=== PATIENT | female | born 1955 | race Caucasian/White ===

== ENCOUNTER 2023-05-17 14:01 | Outpatient (CLI) | payer MEDICARE, OTHER ==
[~2023-05-17] VITALS: Ht 165.1 cm; Wt 60.3 kg
[2023-05-17] MEDS ORDERED: albuterol 2.5 MG/3 ML nebule NEB ONE (14:39)
[2023-05-17 14:51] VITALS: PULSE 82; RESP 16; O2SAT 98
== END 2023-05-17 23:59 | disposition home or self-care (01) ==
LOC: RT 14:01
PROVIDERS: ATTEND Physician Assistant Medical
DX: R94.2 Abnormal results of pulmonary function studies (principal); R06.09 Other forms of dyspnea
CPT/HCPCS: 94060; 94760

== ENCOUNTER 2024-12-22 11:45 | Emergency (ER) | payer MEDICARE, OTHER ==
[2024-12-22] VITALS (9 sets, daily range): BP systolic 111; BP diastolic 66; PULSE 106–124; RESP 18–32; TEMP 97.8; O2SAT 93–100
[~2024-12-22] VITALS: Ht 165.1 cm; Wt 61.1 kg
--- NOTE | 2024-12-22 11:55 | ELECTROCARDIOGRAPH REPORT ---
[facility] Test Date: 2024-12-22 Test Time: 11:48:13 Pat Name: JASKARAN TROY Department: EMERGENCY ROOM [id number] Room: Gender: F Construction Supervisor: AMANDA : 1955 Requested By: BORA LY Order Number: [id number] Reading MD: Dr. Guanakito Lima Measurements Intervals [place] Rate: 111 P: 92 [place]: 107 QRS: 65 QRSD: 117 T: -36 QT: 342 QTc: 465 Interpretive Statements Sinus tachycardia Probable left atrial enlargement Incomplete right bundle branch block Borderline ST depression, lateral leads Electronically Signed On 12-23-2024 18:21:[address] Guanakito Lima Please click the below link to view image of tracing.
[2024-12-22] MEDS: ipratropium/albuterol 3ml nebule NEB STA (12:00)
[2024-12-22 12:14] LABS: MEAN PLATELET VOLUME 7.9 FL (7.4-10.4); RED CELL DISTRIBUTION WIDTH 13.5 % (11.5-14.5)
--- NOTE | 2024-12-22 12:16 | Physician Documentation ---
History of Present Illness ~ Chief Complaint: Asthma Stated Complaint: DIFFICULTY BREATHING Time Seen by MD: 12:01 Source: patient Mode of Arrival: POV Exam Limitations: no limitations HPI Chief Complaint: Shortness a breath Caveat: None Independent Historians: None History of Present Illness: Patient is a 69-year-old woman who took a taxi here because of her shortness a breath. Patient has started to feel short of breath midnight on Saturday. Shortness of breath has gotten progressively worse. Patient has had asthma in the past but has not used her asthma inhaler in a year. She tried that but without relief. Patient was 87% on room air upon arrival. Review of systems: All systems were reviewed and are negative except for what is indicated in the history of present illness. Past Medical History: Asthma Past Surgical History: Noncontributory Social History: No Tobacco use, no alcohol use, no drug use Medications: Reviewed as documented Nursing Notes Allergies: Reviewed as documented in Nursing Notes Medication Reconciliation Allergies: Coded Allergies: clindamycin (Verified Allergy, Unknown, 12/22/24) Scheduled Budesonide/Formoterol Fumarate (Symbicort 80-4.5 Mcg Inhaler), 2 PUFFS INH Q12H Prednisone* (Prednisone*), 1 TAB PO Q12H Scheduled PRN Albuterol Sulfate (Ventolin Hfa), 2 PUFFS INH Q4HPRN PRN for wheezing Review of Systems All Other Systems at this time: Reviewed and Negative ROS Patient denies any other acute symptoms other than above. All other systems are negative Physical Exam Vital Signs: RN Vital Signs have been reviewed: Yes, Temperature: 97.8, Source: Temporal, Heart Rate: 112, Respiratory Rate: 30, BP: 177/92, Pulse Oximetry: 99, Weight: 61.150 Pulse Oximetry Reflects: adequate oxygenation Physical Exam General Appearance: Moderate distress, critically ill-appearing HEENT: Normal OP, moist oral mucosa, PERRL, EOMI Neck: supple, normal ROM, trachea midline Pulmonary: Severe respiratory distress, bilateral inspiratory and expiratory wheezes that are audible even without stethoscope, BS equal Cardiac: Tachycardia, regular rhythm, no murmur, rub or gallop, GI: nondistended, soft, nontender, normal bowel sounds, no guarding, no rebound Extremities: normal ROM, no swelling, non-tender Skin: intact, dry, warm, no rashes Neuro: AAOx3, speech is clear, no focal motor weakness Psych: normal affect, good eye contact, no apparent hallucination, normal speech Progress Results/Orders Results/Orders Orders - BORA LY MD Chest,Single View (12/22/24 11:53) Cont Nebulizer Treatment (12/22/24 12:13) Albuterol 2.5mg/3ml Nebule (Proventil 2. (12/22/24 12:15) Svn Treatment (12/22/24 13:27) Svn Treatment (12/22/24 14:37) Completed Orders - BORA LY MD Chest,Single View (12/22/24 11:53) Cbc/Diff (12/22/24 11:53) BMP (12/22/24 11:53) Electrocardiogram (12/22/24 11:53) Ipratropium/Albuterol Nebule (Ipratrop/A (12/22/24 11:53) Methylprednisolone Sod Succ (Solumedrol (12/22/24 12:15) Normal Saline 1000ml (0.9% Sodium Chlori (12/22/24 12:15) Ipratropium/Albuterol Nebule (Ipratrop/A (12/22/24 13:30) Albuterol 2.5mg/3ml Nebule (Proventil 2. (12/22/24 14:40) Normal Saline 1000ml (0.9% Sodium Chlori (12/22/24 14:40) Medications Received in ER Medications (Trade) Dose Ordered Sig/Tim Route PRN Reason Start Time Stop Time Status Last Admin Dose Admin (ipratrop/ albuterol 0.5-3(2.5) MG/3ml nebule) 3 ml NOW STAT NEB 12/22/24 11:53 12/22/24 11:54 DC 12/22/24 12:00 3 ML (SoluMEDROL 125mg inj) 125 mg ONCE ONCE IV 12/22/24 12:15 12/22/24 12:16 DC 12/22/24 12:19 125 MG (0.9% sodium chloride (NS) 1000ml IV soln) 500 ml ONCE ONCE IVB 12/22/24 12:15 12/22/24 12:16 DC 12/22/24 12:19 500 ML (Proventil 2.5 MG/3ML nebule) 10 mg Q1H PRN CONTNEB SOB or wheezing 12/22/24 12:15 12/22/24 12:20 10 MG (ipratrop/ albuterol 0.5-3(2.5) MG/3ml nebule) 3 ml ONCE ONCE NEB 12/22/24 13:30 12/22/24 13:31 DC 12/22/24 13:31 3 ML (Proventil 2.5 MG/3ML nebule) 5 mg ONCE ONCE NEB 12/22/24 14:40 12/22/24 14:43 DC 12/22/24 14:53 5 MG (0.9% sodium chloride (NS) 1000ml IV soln) 500 ml ONCE ONCE IVB 12/22/24 14:40 12/22/24 14:43 DC 12/22/24 14:44 500 ML Vital Signs 12/22/24 12/22/24 12/22/24 12/22/24 11:48 12:03 12:06 12:08 Temp 97.8 Pulse 111 108 112 Resp 18 32 35 30 B/P (MAP) 177/92 Pulse Ox 97 93 99 O2 Delivery Nasal Cannula* Nasal Cannula* O2 Flow Rate 2 2 FiO2 12/22/24 12/22/24 12/22/24 12/22/24 12:22 12:26 12:56 13:30 Pulse 110 106 113 125 Resp 28 35 B/P (MAP) 155/88 (110) 151/85 (107) 142/84 (103) Pulse Ox 96 100 100 O2 Flow Rate 1.5 15.0 12/22/24 12/22/24 12/22/24 12/22/24 13:33 13:41 14:00 14:30 Pulse 122 124 118 116 Resp 24 22 B/P (MAP) 122/69 (86) 106/59 (75) Pulse Ox 97 100 99 90 O2 Delivery Room Air* Room Air* O2 Flow Rate 0 0 0 FiO2 21 12/22/24 12/22/24 12/22/24 12/22/24 14:42 14:56 15:00 15:06 Pulse 116 109 Resp 20 18 Pulse Ox 95 98 95 100 O2 Delivery Nasal Cannula* Nasal Cannula* Nasal Cannula* Room Air* Nasal Cannula* O2 Flow Rate 2 2 1 1 FiO2 28 28 24 N/A 12/22/24 15:30 Pulse 109 Resp 22 B/P (MAP) 111/66 (81) Pulse Ox 93 O2 Flow Rate 0 Laboratory Tests Test 12/22/24 12:04 White Blood Count 4.7 Red Blood Count 5.16 Hemoglobin 15.8 Hematocrit 46.9 H Mean Corpuscular Volume 90.9 Mean Corpuscular Hemoglobin 30.6 Mean Corpuscular Hemoglobin Concent 33.7 Red Cell Distribution Width 13.5 Platelet Count 210 Mean Platelet Volume 7.9 Neutrophils (%) (Auto) 69.4 Lymphocytes (%) (Auto) 17.5 L Monocytes (%) (Auto) 6.6 Eosinophils (%) (Auto) 6.2 H Basophils (%) (Auto) 0.3 Neutrophils # (Auto) 3.3 Lymphocytes # (Auto) 0.8 L Monocytes # (Auto) 0.3 Eosinophils # (Auto) 0.3 Basophils # (Auto) 0.0 CBC Comment Sodium Level 137 Potassium Level 4.4 Chloride Level 99 Carbon Dioxide Level 27.8 Anion Gap 10 Blood Urea Nitrogen 10 Creatinine 0.78 Estimated GFR/1.73 m2 73 BUN/Creatinine Ratio 12.8 Glucose Level 132 H Calcium Level 9.2 Albumin 4.4 Chemistry Comments Medical Decision Making Findings Differential diagnosis includes but is not limited to: Asthma exacerbation, COPD, CHF, pneumonia, pleural effusion EKG independent interpretation: Performed at 11:48 a.m.. Sinus tachycardia, heart rate 111, normal axis, incomplete right bundle-branch block, left atrial enlargement Chest x-ray, single view, indication: Shortness a breath Independent interpretation: Lungs are clear but there is some increased interstitial markings in the lower lungs, no evidence of pneumonia, no pleural effusion, normal mediastinum, normal cardiac silhouette. No acute cardiopulmonary process Laboratory data independent interpretation: CBC: Unremarkable BMP: Unremarkable Emergency department course/medical decision-making: Patient is critically ill and presents with the acute respiratory failure secondary to what appears to be asthma. Patient is given Solu-Medrol 125 mg IV. Normal saline 500 cc IV. Albuterol neb 10 mg continuous. Patient has diffuse inspiratory and expiratory wheezes. Patient is requiring 2 L of oxygen by nasal cannula. PATIENT RE-EVALUATED MULTIPLE TIMES. PATIENT HAS PERSISTENT WHEEZING. PATIENT STATES THAT SHE IS ON ABLE TO STAY. IT IS HIGHLY RECOMMENDED SHE BE ADMITTED TO THE HOSPITAL BUT SHE STATES SHE NEEDS TO GO HOME TO TAKE CARE OF HER WHO IS A QUADRIPLEGIC. PATIENT IS GIVEN A 2ND AND 3RD NEBULIZER TREATMENTS BOTH ALBUTEROL AND DUONEB. PATIENT GIVEN ADDITIONAL 500 CC OF NORMAL SALINE. PATIENT IS INSTRUCTED TO RETURN AND CALLED 911 IF SHE HAS ANY WORSENING OF HER SYMPTOMS. PATIENT REMAINS TACHYCARDIC SECONDARY TO THE ALBUTEROL. PATIENT'S PULSE OX IS LOW 90% WHEN SLEEPING. PATIENT'S PULSE OX AT DISCHARGE WAS 93%. PATIENT STATES THAT SHE FEELS MUCH BETTER BUT STILL REFUSES ADMISSION. PATIENT IS DISCHARGED AGAINST MEDICAL ADVICE. PRESCRIPTIONS FOR PREDNISONE, VENTOLIN INHALER AND BUDESONIDE INHALER SENT TO [facility]. Departure Time of Disposition: 15:33 Disposition: 07 LEFT AGAINST MEDICAL ADVICE Impression: Primary Impression: Acute respiratory failure with hypoxia Additional Impression: Asthma exacerbation Qualified Codes: J45.51 - Severe persistent asthma with (acute) exacerbation Additional Instructions: CALLED 911 IF YOUR BREATHING GETS WORSE. TAKE YOUR ALBUTEROL INHALER 2-4 PUFFS EVERY 4 HOURS FOR THE NEXT SEVERAL DAYS. IF YOU ARE REQUIRING ALBUTEROL MORE FREQUENTLY SHOULD RETURN TO THE EMERGENCY DEPARTMENT Prescriptions Budesonide/Formoterol Fumarate (Symbicort 80-4.5 Mcg Inhaler) 80 Mcg-4.5 Mcg/Actuation Hfa.aer.ad 2 PUFFS INH Q12H for 30 Days, #1 INHALER 0 Refills Prov: BORA LY MD 12/22/24 Prednisone* (Prednisone*) 20 Mg Tablet 1 TAB PO Q12H for 5 Days, #10 TAB Prov: BORA LY MD 12/22/24 Albuterol Sulfate (Ventolin Hfa) 90 Mcg Hfa.aer.ad 2 PUFFS INH Q4HPRN PRN for wheezing for 30 Days, #18 GM 0 Refills Prov: BORA LY MD 12/22/24 Education Educated: Patient Educated regarding: diagnosis, treatment, need for follow up Critical Care Note Total Time (mins): 45 Critical Care Note Critical conditions addressed for impending deterioration include: airway/respiratory, cardiovascular Associated risk factors involving deterioration include: hypoxia, The very real possibility of a deterioration of this patient's condition required the highest level of my preparedness for sudden, emergent intervention. I provided critical care services, which included medication orders, frequent reevaluations of the patient's condition and response to treatment, ordering and reviewing test results, and discussing the case with necessary consultants. Critical care time was exclusive of necessary procedure time. The critical care time associated with the care of the patient was 45 minutes. Signature Scribe Signature: NO SCRIBE Attestation: NO SCRIBE BORA LY MD Dec 22, 2024 12:16
[2024-12-22] MEDS: normal saline 1000ML IV soln IVB ONE ×2 (12:19→14:44)
[2024-12-22] MEDS: albuterol 2.5 MG/3 ML nebule CONTNEB PRN (12:20)
[2024-12-22 12:21] LABS: CREATININE 0.78 MG/DL (0.40-0.90); TOTAL CARBON DIOXIDE 27.8 MMOL/L (24-32); eCRCL 61 ML/MIN; eGFR 73 ML/MIN
--- NOTE | 2024-12-22 12:43 | RADIOLOGY REPORT ---
CHEST RADIOGRAPH Indication: CP Technique: Single frontal view of the chest was obtained COMPARISON: None FINDINGS: Lines and Tubes: None Lungs: Clear Pleura: No effusion. No pneumothorax. Cardiomediastinal contours: Unremarkable Bones: Unremarkable IMPRESSION: No acute disease.
[2024-12-22] MEDS: ipratropium/albuterol 3ml nebule NEB ONE (13:31)
[2024-12-22] MEDS: albuterol 2.5 MG/3 ML nebule NEB ONE (14:53)
[2024-12-22] MEDS ORDERED: PRED20TA PO (15:36)
[2024-12-22] MEDS ORDERED: ALBU18HF2 INH (15:36)
[2024-12-22] MEDS ORDERED: BUDE10.22 INH (15:36)
== END 2024-12-22 15:52 | disposition left against medical advice (07) ==
LOC: ER 11:45
DX: J96.01 Acute respiratory failure with hypoxia (principal); J45.901 Unspecified asthma with (acute) exacerbation; Z88.1 Allergy status to other antibiotic agents
CPT/HCPCS: 36415; 71045; 80048; 85025; 93005; 94644; 96374; 99291; A4615; A7015; J2919; J7030; Z7610; 94640; 94760

== ENCOUNTER 2025-01-27 09:58 | Inpatient (IN) | payer MEDICARE, OTHER ==
[2025-01-27] VITALS (7 sets, daily range): BP systolic 110–144; BP diastolic 69–85; PULSE 86–105; RESP 16–20; TEMP 97.7–98.2; O2SAT 92–98
[~2025-01-27] VITALS: Ht 165.1 cm; Wt 61.9 kg
[~2025-01-27 09:58] MED LIST: ALBU18HF2 INH; BUDE10.22 INH
--- NOTE | 2025-01-27 10:07 | Physician Documentation ---
History of Present Illness ~ Chief Complaint: Shortness of Breath Stated Complaint: SOB Time Seen by MD: 10:07 HPI 69-year-old female, history of asthma who presents with shortness of breath. Per EMS, the patient was in mild respiratory distress, with an oxygen saturation in the mid 80s when they arrived. They gave her albuterol treatment with improvement. The patient tells me she has been feeling sick over the past week. Her symptoms have gradually been worsening, and during the night they significantly worsened. She reports increased cough and wheezing. She has been feeling hot and cold like she is having a fever. She denies any chest pain, abdominal pain, nausea, vomiting, diarrhea, leg pain or swelling, or other associated symptoms. She does have a history of severe asthma including status asthmaticus and admission. The last time she was on steroids was about a month ago. Medication Reconciliation Allergies: Coded Allergies: clindamycin (Verified Allergy, Unknown, 12/22/24) Scheduled Budesonide/Formoterol Fumarate (Symbicort 80-4.5 Mcg Inhaler), 2 PUFFS INH Q12H Scheduled PRN Albuterol Sulfate (Ventolin Hfa), 2 PUFFS INH Q4HPRN PRN for wheezing Review of Systems Constitutional: Reports: chills, fever Respiratory: Reports: cough, shortness of breath Physical Exam Vital Signs: Source: Oral, Heart Rate: 111, BP: 137/92, Pulse Oximetry: 94, Weight: 61.900 Oxygen Flow Rate: 0 Physical Exam General: This is a pleasant older female who appears in mild respiratory distress HEENT: Atraumatic, oropharynx is dry Heart: Tachycardic, appears regular Lungs: Mild respiratory distress with significant wheezing and diminished air movement bilateral Extremities: No significant edema Neuro: Alert and follows simple commands Progress Results/Orders Results/Orders Orders - SUMANTH RIVERA MD Chest,Two Views (01/27/25 10:15) Page Hospitalist (01/27/25 12:03) Completed Orders - SUMANTH RIVERA MD Methylprednisolone Sod Succ (Solumedrol (01/27/25 10:15) Magnesium Sulf-Water 2g/50ml (Magnesium (01/27/25 10:15) Ipratropium/Albuterol Nebule (Ipratrop/A (01/27/25 12:00) Chest,Two Views (01/27/25 10:15) CMP (01/27/25 11:12) Cbc/Diff (01/27/25 11:12) Hgb A1c (01/27/25 10:41) Lipid Panel (01/27/25 10:41) TSH (01/27/25 10:41) Medications Received in ER Medications (Trade) Dose Ordered Sig/Tim Route PRN Reason Start Time Stop Time Status Last Admin Dose Admin (ipratrop/ albuterol 0.5-3(2.5) MG/3ml nebule) 3 ml Q4H ONCE NEB 01/27/25 12:00 01/27/25 12:01 DC 01/27/25 12:08 3 ML Vital Signs 01/27/25 01/27/25 01/27/25 01/27/25 09:59 10:05 10:53 12:01 Temp 98.1 98.1 98.1 Pulse 111 103 99 Resp 18 20 20 14 B/P (MAP) 137/92 130/78 (95) 153/92 (112) Pulse Ox 94 93 93 O2 Flow Rate 0 2.0 0 01/27/25 01/27/25 01/27/25 12:09 12:17 13:08 Temp 98.1 Pulse 87 97 105 Resp 20 20 22 B/P (MAP) 145/100 (115) Pulse Ox 92 94 91 O2 Delivery Room Air* Room Air* O2 Flow Rate 0 0 0 FiO2 21 21 Laboratory Tests Test 01/27/25 10:41 White Blood Count 4.6 Red Blood Count 4.91 Hemoglobin 14.9 Hematocrit 44.4 Mean Corpuscular Volume 90.5 Mean Corpuscular Hemoglobin 30.4 Mean Corpuscular Hemoglobin Concent 33.6 Red Cell Distribution Width 13.4 Platelet Count 210 Mean Platelet Volume 7.8 Neutrophils (%) (Auto) 56.4 Lymphocytes (%) (Auto) 28.1 Monocytes (%) (Auto) 6.1 Eosinophils (%) (Auto) 8.5 H Basophils (%) (Auto) 0.9 Neutrophils # (Auto) 2.6 Lymphocytes # (Auto) 1.3 Monocytes # (Auto) 0.3 Eosinophils # (Auto) 0.4 Basophils # (Auto) 0.0 CBC Comment Sodium Level 141 Potassium Level 3.7 Chloride Level 104 Carbon Dioxide Level 28.1 Anion Gap 9 Blood Urea Nitrogen 7 Creatinine 0.67 Estimated GFR/1.73 m2 87 BUN/Creatinine Ratio 10.4 Glucose Level 106 H Hemoglobin A1c 5.5 Calcium Level 9.3 Total Bilirubin 0.6 Aspartate Amino Transf (AST/SGOT) 18 Alanine Aminotransferase (ALT/SGPT) 21 Alkaline Phosphatase 74 Total Protein 7.2 Albumin 3.9 Globulin 3.3 Albumin/Globulin Ratio 1.2 Triglycerides Level 47 Cholesterol Level 251 H LDL Cholesterol 133 H HDL Cholesterol 93 H Cholesterol/HDL Ratio 2.7 Thyroid Stimulating Hormone (TSH) 2.02 Chemistry Comments EKG/XRAY/CT/US/VASC/MRI Chest X-Ray : Additional Comments I personally interpreted the EKG and this shows: No focal consolidation, no pulmonary edema, no pneumothorax Consults/PCP Consults/PCP : Additional Comment Consult: I spoke to the internal medicine service, for admission in the hospital Medical Decision Making Differential Dx:Considerations: Include: asthma, bronchitis, COPD, myocardial infarction, pulmonary embolism Additional Infomation The patient presents with shortness of breath and a history consistent with an asthma exacerbation. She has no chest pain or other symptoms to suggest a cardiac related cause. Chest x-ray without pneumonia. She was given aggressive treatment including steroids, breathing treatments and magnesium. Following this she did appear much improved, but continued to have significant shortness of breath with exertion including mild hypoxia. She will be admitted to the medicine service for further treatment. Departure Impression: Primary Impression: Asthma exacerbation Additional Impression: Acute respiratory failure with hypoxia Condition: Improved Referrals: NO PRIMARY CARE PROVIDER (PCP) Signature Scribe Signature: na Attestation: SUMANTH Turcios MD Jan 27, 2025 10:07
[2025-01-27] MEDS: magnesium sulf-water 2g/50mL 50 ML IV ONE (10:32)
--- NOTE | 2025-01-27 11:08 | RADIOLOGY REPORT ---
DI CHEST,TWO VIEWS CLINICAL HISTORY: Shortness of breath, cough, asthma exacerbation COMPARISON: DI CHEST,SINGLE VIEW on DOS: 12/22/24 TECHNIQUE: Frontal and lateral view of the chest was obtained FINDINGS: Lines and Tubes: None Lungs: No focal consolidation. Pleura: No effusion. No pneumothorax. Cardiomediastinal contours: Unremarkable Bones: No acute osseous abnormality. IMPRESSION: No acute cardiopulmonary disease.
[2025-01-27 11:32] LABS: MEAN PLATELET VOLUME 7.8 FL (7.4-10.4); RED CELL DISTRIBUTION WIDTH 13.4 % (11.5-14.5)
[2025-01-27 11:43] LABS: CREATININE 0.67 MG/DL (0.40-0.90); TOTAL CARBON DIOXIDE 28.1 MMOL/L (24-32); eCRCL 71 ML/MIN; eGFR 87 ML/MIN
[2025-01-27] MEDS: ipratropium/albuterol 3ml nebule NEB ONE (12:08)
[2025-01-27] MEDS ORDERED: ondansetron/PF 4mg/2ml inj IV PRN (13:15)
[2025-01-27] MEDS ORDERED: mag hydrox/Alum hydrox/simeth 30ml oral suspension PO PRN (13:15)
[2025-01-27] MEDS ORDERED: magnesium hydroxide 30ml (MOM) UD suspension PO PRN (13:15)
[2025-01-27] MEDS ORDERED: potassium Cl 20 mEq SR tablet PO PRN ×2 (13:15)
[2025-01-27] MEDS ORDERED: magnesium sulf-water 4G/100mL 100 ML IV PRN (13:15)
[2025-01-27] MEDS ORDERED: magnesium Cl slow-release 64mg tablet PO PRN (13:15)
[2025-01-27] MEDS ORDERED: potassium Cl 40MEQ/1/2NS 520ml 520 ML IV PRN (13:15)
[2025-01-27] MEDS ORDERED: magnesium sulf-water 2g/50mL 50 ML IV PRN (13:15)
--- NOTE | 2025-01-27 13:50 | HISTORY AND PHYSICAL-Residence ---
History & Physical Providers to CC Resident Creating Document: CECILIO COPE RES CC: TANG DE LA GARZA MD ~ History of Present Illness Primary Medical Doctor: Ariela Patel Reason for Admit\Complaint: Asthma Excerabation History of Present Illness This is a 81-year-old female with known history of asthma, hypothyroidism presented in the ER with worsening shortness of breath for the past one week. Patient reports that the shortness of breath is intermittent and has progressively worsened and now significantly interfere with her daily activities and sleep. She also reports shortness of breath while sleeping and wake up about 3 times in a night due to shortness of breath.She is also monitoring oxygen saturation at home and have been between 87 and 92, her shortness of breath is worse with inspiration, patient endorses orthopnea and PND. Shortness of breaths is notably worse with exertion improves partially with rest but never fully resolves, also reports expiratory wheezing and cough with yellow sputum which has now become clear as of today.Patient endorses sweating but denies chest pain,headache constipation or diarrhea. She also uses albuterol and Symbicort inhaler which provide temporary symptomatic relief lasting approximately 1-2 words apart from that she had a previous ER visit in December 2024 for asthma excerbation. Allergies: Coded Allergies: clindamycin (Verified Allergy, Unknown, 12/22/24) Home Medications Home Medications Active Symbicort 80-4.5 Mcg Inhaler (Budesonide/Formoterol Fumarate) 80 Mcg-4.5 Mcg/Actuation Hfa.aer.ad 2 Puffs INH Q12H 30 Days Ventolin Hfa (Albuterol Sulfate) 90 Mcg Hfa.aer.ad 2 Puffs INH Q4HPRN PRN 30 Days Past Medical History Past Medical History Asthma Hypothyrodism Past Surgical History Surgical History Comment Tonsillectomy Past Social History Social History Comment She never smoked She has been drinking since she was 21 and she drinks a glass of wine and shot of whisky. Denies other illicit drug use history. She lives in home with her and is retired previously used to work in [employer]. ROS ROS Constitutional: No weakness,fatigue,patient mentions she sweat. HEENT: No blurring of the vision,No Redness,photophobia or itching No sore throat, epistaxis. Cardiovascular: chest pain palpitations. No pedal edema? Respiratory: Shortness of breath,cough,no hemotypsis Gastrointestinal: Denies abdominal pain, nausea,Vomitting. Genitourinary: No frquency, urgency, incontinence, nocturia, dysuria Musculoskeletal: Denies muscle pain, joint pain or swelling Endocrine: No fatigue, no polydipsia, polyuria, patient report sweating. Neurologic: Reports no headche, vertigo ,weakness, numbness or tingling of extremities, tremors noted in bilateral hands. Psychiatric: No hallucinations/delusions, no anhedonia, no suicidal ideation Hematologic: No bleeding or bruises Integumentary: Reports: no symptoms reported Exam Vitals: Vital Signs Date Time Temp Pulse Resp B/P (MAP) Pulse Ox O2 Delivery O2 Flow Rate FiO2 01/27/25 13:08 98.1 105 22 145/100 (115) 91 0 01/27/25 12:17 Room Air* 21 General: General: awake, alert oriented to place, time, and person HEENT: No pallor present, no icterus, moist mucous membranes ,EOM intact Neck: No masses and tenderness Resp: Unlabored. Wheezing heard bilaterally, no rales or crackles Cardiovascular: Regular Rate and rhythm, normal S1 and S2 without murmur, rub or gallop Abdomen: Soft and non tender in epigastrium, no organomegaly, no guarding and rigidity, bowel sounds present Neuro: No focal weakness in the upper and lower limb muscles, power of the muscles 5/5 bilateral upper and lower extremities, normal reflexes bilaterally. Cranial nerves intact Extremities: No cyanosis,clubbing or edema Skin: Warm and Dry. No lesions Psych: Normal affect Diagnostic Data Last Recorded Lab Results: 01/27/25 1041 01/27/25 1041 Advance Care Planning Advanced Care plannin - 30 Minutes (I spent 17 minutes in discussing various resuscitative measures with the patient and she choose to be fullcode.) Additional Plan Assessment: This is a 81-year-old female with known history of hypothyroidism and asthma, presented in ER on ambulance with complain of shortness of breath that has been ongoing for approximately since 1 week.She is admitted in view of asthma excerbation and for cardiac workup. Plan Acute hypoxemic respiratory Failure 2/2 Acute asthma exacerbation Eosinophilia Wbc: 4.6 Eosinophils: 8.5 Patient recevied 125 solumedrol in ER Started Patient on duonebs Q2h and IV solumedrol 60 MG Q8H She was started on 1 L of oxygen in view of dysnea, maintained oxygen sat 92 Started patient on Oxygen as needed. Ordered Influenza and COVID for possbile trigger of Asthma excerabation Suspicion New onset HF with unknown EF Patient reporting Orthopnea Follow up with Echo and proBNP Will consider GDMT after echo Hypothyroidism Continue levothyroxine 50 mcg TSH: 2.02 Hyperlipidemia Started patient on Rovustatin 40 mg Cholestrol: 251, LDL: 133 Code Status: Full Code Diet: Heart Healthy Diet DVT prophylaxis: Lovenox Disposition: Admit to Ortho, Follow up echo, D dimer, flu nad COVID tests. Cecilio Cope MD Internal Medicine, PGY 1 Case reviewed and edits made. Agree with the assessment and plan as per above. Jose E Torres MD Internal Medicine, PGY 2 Date of Service: Jan 27, 2025 Billing Provider: TANG DE LA GARZA MD, SANJAY, RES Jan 27, 2025 13:50 JOSE E TORRES, RES Jan 27, 2025 19:13
[2025-01-27] MEDS: enoxaparin 40mg/0.4ml syringe SUBCUT SCH (14:02)
[2025-01-27 14:10] LABS: CHOL/HDL RATIO 2.7 (0.00-4.99); LDL CHOLESTEROL 133 MG/DL (50-100)
[2025-01-27] MEDS ORDERED: PERFLUTREN PROTEIN-A MICROSPHR (Optison) 0.22 MG/ML 3ML VIAL IV ONE (15:15)
[2025-01-27] MEDS: K and/or MAG REPLACEMENT MC SCH (18:26)
[2025-01-27] MEDS: docusate sod 100mg capsule PO SCH (19:39)
[2025-01-27] MEDS ORDERED: LEVO50TA PO (19:44)
[2025-01-27] MEDS: ipratropium/albuterol 3ml nebule NEB PRN (20:13)
--- NOTE | 2025-01-27 20:23 | CARDIOLOGY REPORT ---
APPROVED REPORT EXAM: Comprehensive 2D, Doppler, and color-flow Echocardiogram. Patient Location: [facility]4 B Heart Rate: 90's bpm Rhythm: SINUS Indications SHORTNESS OF BREATH Dean Of Girls: Surjit NOLASCO MD Previous echo: NONE AVAILABLE (AFTER HOURS) 2D Dimensions RVDd 2.9 cm LA Diam2.1 cm IVSd 0.9 (0.7-1.1cm) LVDd 3.6 cm PWd 0.8 (0.7-1.1cm) IVSs 1.4 (0.8-1.2cm) LVDs 2.4 (2.5-4.0cm) Aortic Root(2D) 2.5 cm PWs 1.1 (0.8-1.2cm) LVOT Diameter 1.97 (1.8-2.4cm) LVEF(%) 64.3 (>50%) IVC 16.25 mm FS (%) 34.3 % SV 34.5 ml CO 3.2 L/min M-Mode Dimensions Aortic Root 3.24 (2.2-3.7cm) MV EPSS 0.4 (<0.5cm) Aortic Valve AoV Peak Luis. 139.3 cm/s AoV VTI 24.9 cm AO Peak GR. 7.8 mmHg AO Mean GR. 4 mmHg LVOT VTI 18.08 cm LVOT Peak Luis. 121.3 cm/s CARMEN(VTI)/BSA 2.22 cm2/m2 CARMEN (VTI) 2.22 cm2 Mitral Valve MV E Velocity 64.3 cm/s MV Peak Gr. 2 mmHg MV DECEL TIME 264 ms MV A Velocity 91.5 cm/s MV PHT 52 ms E/A Ratio 0.7 MVA (PHT) 4.23 cm2 MV VMax71.0 cm/s TDI Medial E' P. V 7.70 cm/s E/Medial E' 8.4 Tricuspid Valve TR P. Velocity 156 cm/s TR Peak Gr. 10 mmHg Pulmonary Vein S1 Velocity 45.4 cm/s D2 Velocity 27.3 cm/s PVa Uhgdxjxs01.4 cm/s PVa Fuadvqaq49 msec LEFT VENTRICLE Small LV size with normal wall thickness. Overall systolic function is normal. Overall LVEF is 65%. RIGHT VENTRICLE RV is normal size and function. ATRIA The left atrium size is normal. AORTIC VALVE Trileaflet AV appears mildly sclerotic without stenosis. No insufficiency. TDS. Poor Doppler angles d ue to lack of adequate imaging windows, quantitative data must be clinically correlated. MITRAL VALVE Mild MV annular calcification without stenosis. Trace regurgitation. TDS. TRICUSPID VALVE TV appears structurally normal with trace regurgitation. TDS PULMONIC VALVE Normal PV without stenosis, physiologic insufficiency. GREAT VESSELS The aortic root is normal in size. IVC is normal in size and collapses greater than 50% with inspirat ion. PERICARDIUM Normal pericardium. No effusion. Other Information Study Quality: Technically Difficult due to patient breathing and poor imaging windows Conclusion Overall LVEF is 65%. Small LV size with normal wall thickness. Overall systolic function is normal. RV is normal size and function. Trileaflet AV appears mildly sclerotic without stenosis. No insufficiency. TDS. Poor Doppler angles d ue to lack of adequate imaging windows, quantitative data must be clinically correlated. Mild MV annular calcification without stenosis. Trace regurgitation. TDS. TV appears structurally normal with trace regurgitation. TDS Normal PV without stenosis, physiologic insufficiency. Normal pericardium. No effusion.
[2025-01-27 20:49] LABS: LEUKOCYTE ESTERASE ,URINE NEGATIVE (Neg); NITRITES, URINE NEGATIVE (Neg); OCCULT BLOOD,URINE NEGATIVE (Neg); UA COLLECTION TYPE URINAL
[2025-01-27 21:07] LABS: URINE AMPHETAMINE SCREEN NEGATIVE (Neg); URINE BARBITUATE SCREEN NEGATIVE (Neg); URINE BENZODIAZEPINES SCREEN NEGATIVE (Neg); URINE CANNABINOID SCREEN NEGATIVE (Neg); URINE COCAINE SCREEN NEGATIVE (Neg); URINE METHADONE SCREEN NEGATIVE (Neg); URINE OPIATE SCREEN NEGATIVE (Neg); URINE PHENCYCLIDINE SCREEN NEGATIVE (Neg)
[2025-01-28] VITALS (9 sets, daily range): BP systolic 113–133; BP diastolic 69–82; PULSE 82–104; RESP 16–18; TEMP 97.3–98.1; O2SAT 92–99
[2025-01-28 06:30] LABS: MEAN PLATELET VOLUME 7.5 FL (7.4-10.4); RED CELL DISTRIBUTION WIDTH 13.4 % (11.5-14.5)
[2025-01-28 06:32] LABS: APTT 24 SECONDS (22-32); INR 1.0 INR
[2025-01-28 06:48] LABS: CREATININE 0.64 MG/DL (0.40-0.90); PHOSPHORUS 3.9 MG/DL (2.3-4.5); TOTAL CARBON DIOXIDE 28.5 MMOL/L (24-32); eCRCL 75 ML/MIN; eGFR > 90 ML/MIN
[2025-01-28] MEDS: levoTHYROXINE 25mcg tablet PO SCH (08:00)
[2025-01-28] MEDS ORDERED: dextrose 50%-water 50ml dispensing syringe IV PRN (13:20)
[2025-01-28] MEDS ORDERED: haloperidol lactate 5mg/ml inj IM PRN (13:20)
[2025-01-28] MEDS ORDERED: albuterol 2.5 MG/3 ML nebule NEB PRN (17:40)
[2025-01-28] MEDS ORDERED: ipratropium/albuterol 3ml nebule NEB SCH (19:00)
--- NOTE | 2025-01-28 19:07 | PROGRESS NOTE- Residence ---
Progress Note - Resident Providers to CC Resident Creating Document: PAUL RED RES CC: TANG DE LA GARZA MD ~ Antibiotic Timeout Antibiotic Ordered?: Yes Subjective Patient was examined and seen at bedside, She was lying comfortably, her shortness of breath has improved since yestraday, maintaining Oxy Sat at room air, Denies chest pain and Shortness of breath. Objective Vital Signs Date Time Temp Pulse Resp B/P (MAP) Pulse Ox O2 Delivery O2 Flow Rate FiO2 01/28/25 18:30 97.9 82 16 133/82 (99) 92 01/28/25 14:47 Room Air 01/28/25 10:00 1.0 01/28/25 07:24 24 Result Diagram: 01/28/25 0601/28/25 06 General: awake, alert oriented to place, time, and person HEENT: No pallor present, no icterus, moist mucous membranes Neck: No masses and tenderness Respiratory: No signs of resipratory distress,expiratory wheeze improved,no rales or crackles. Chest: Normal expansion. Cardiovascular: Regular Rate and rhythm, normal S1 and S2 without murmur, rub or gallop Abdomen: Soft and non tender in epigastrium, no organomegaly, no guarding and rigidity, bowel sounds present Neuro: No focal weakness in the upper and lower limb muscles, power of the muscles 5/5 bilateral upper and lower extremities, normal reflexes bilaterally. Cranial nerves intact Extremities: No cyanosis,clubbing or edema Musculoskeletal: No arthalagia or myalgia Skin: Warm and Dry. No lesions Coagulation Studies Laboratory Tests Test 01/27/25 13:54 01/28/25 06:01 D-Dimer 0.30 MG/L FEU (0-0.50) D-Dimer Comment Prothrombin Time 10.5 SECONDS (9.0-12.0) INR International Normalized Ratio 1.0 INR Activated Partial Thromboplast Time 24 SECONDS (22-32) Coagulation Comments Plan Plan This is a 81-year-old female with known history of hypothyroidism and asthma, presented in ER with complaints of shortness of breath that has been ongoing for approximately 1 week.She is admitted in view of asthma excerbation,copd and for cardiac workup. Acute hypoxemic respiratory Failure, improved 2/2 Acute COPD exacerbation Asthma >CXR suggestive of Emphysema leukocytosis improving Continue duonebs q4hr schduled and IV solumedrol 60 MG Q8H Continue duonebs q2h as prn Satting well on room air COVID negative, follow up with influenza started on Azithromycin 500mg daily (01/28/25- in view of copd exacerabtion. Suspected Heart failure Heart failure ruled out, Echo shows EF 65% no signs of fluid overload. Hypothyroidism Continue levothyroxine 50 mcg TSH: 2.02 Hyperlipidemia Continue Rovustatin 40 mg Cholestrol: 251, LDL: 133 Alcohol Use Disorder Placed patient on mild alcohol withdrawl protocol. Thiamine, folic acid and MVT Code Status: Full Code Diet: Heart Healthy Diet DVT prophylaxis: Lovenox Disposition: Will monitor patient, discharge tomorrow possiblly after a dose of azithromycin. Paul Red PGY1 Internal Medicine Resident Date of Service: Jan 28, 2025 Billing Provider: TANG DE LA GARZA MD, SANJAY, RES Jan 28, 2025 19:07 JOSE E WORKMAN, RES Jan 28, 2025 19:51
[2025-01-28] MEDS: thiamine 100mg/ml 2ml inj. IV SCH (19:29)
[2025-01-28] MEDS: ipratropium/albuterol 3ml nebule NEB SCH (20:26)
[2025-01-29] VITALS (7 sets, daily range): BP systolic 109; BP diastolic 71; PULSE 88–114; RESP 16–18; TEMP 97.6; O2SAT 92–93
[2025-01-29 05:34] LABS: MEAN PLATELET VOLUME 7.5 FL (7.4-10.4); RED CELL DISTRIBUTION WIDTH 13.6 % (11.5-14.5)
[2025-01-29 05:48] LABS: APTT 26 SECONDS (22-32); INR 1.0 INR
[2025-01-29 06:06] LABS: CREATININE 0.65 MG/DL (0.40-0.90); PHOSPHORUS 3.2 MG/DL (2.3-4.5); TOTAL CARBON DIOXIDE 28.7 MMOL/L (24-32); eCRCL 74 ML/MIN; eGFR 90 ML/MIN
[2025-01-29] MEDS: MULTIVIT-MIN/FERROUS GLUCONATE 9 MG/15 ML LIQUID PO SCH (07:30)
[2025-01-29] MEDS: folic acid 1mg/0.2ml inj IV SCH (07:31)
[2025-01-29] MEDS ORDERED: FOLI1TAB27 PO (12:47)
[2025-01-29] MEDS ORDERED: MULT9LIQ7 PO (12:47)
[2025-01-29] MEDS ORDERED: PRED10TA23 PO (12:47)
[2025-01-29] MEDS ORDERED: AZI25OT PO (12:47)
[2025-01-29] MEDS ORDERED: thiamine tablet PO (12:47)
--- NOTE | 2025-01-29 15:18 | DISCHARGE SUMMARY-Residence ---
Discharge Summary Providers to CC Resident Creating Document: PAUL RED RES CC: TANG DE LA GARZA MD ~ Discharge Summary Admission Diagnosis: Asthma Excerabation, suspicion of PE Hospital Course DATE OF ADMISSION: 01/27/25 DATE OF DISCHARGE 01/29/25 Discharge Diagnosis\Comment: Asthma Excerabation, Resolved Emphysema Hypothyroidism Alcohol use disorder Operations\Procedures: None Consultants: none Complications: none Condition on DC: Stable New Medications: Prednisone (Prednisone) 10 Mg Tablet 0 PO DAILY, #42 TAB Take 3 tabs daily x3 days, then 2 daily x2 days 1 daily x2 days 1/2 daily x1 days then STOP Azithromycin (Zithromax) Y Tablet 500 MG PO DAILY for 1 Day, #1 TAB Folic Acid* (Folic Acid*) Y Tab 1 MG PO DAILY, #30 TAB Multivits W-Min/Ferrous Gluc (Centrum Multivit-Mineral Liq) 9 Mg Iron/15 Ml Liquid 15 ML PO DAILY, #30 ML [thiamine tablet] () 100 MG TABLET 100 MG PO DAILY, #30 Continued Medications: Albuterol Sulfate (Ventolin Hfa) 90 Mcg Hfa.aer.ad 2 PUFFS INH Q4HPRN PRN for wheezing for 30 Days, #18 GM 0 Refills Budesonide/Formoterol Fumarate (Symbicort 80-4.5 Mcg Inhaler) 80 Mcg-4.5 Mcg/Actuation Hfa.aer.ad 2 PUFFS INH Q12H for 30 Days, #1 INHALER 0 Refills Levothyroxine Sodium (Synthroid) 50 Mcg Tablet 1 TAB PO DAILY Discharge Summary: Hospital Course This is a 69-year-old female with a known history of asthma who presented to the ER with complaint of shortness of breath. On presentation she was in respiratory distress but was maintaining oxygen saturation on 1-2 L of oxygen on nasal canula. She was initially managed with IV Solu-Medrol 125mg, followed by Solu-Medrol 60 mg Q8h. She also received bronchodilator therapy with DuoNebs every 4 hours and as needed every 2 hours for symptomatic relief. On evaluating chest x-ray patient was found to have emphysema with a probable component of COPD exacerbation when she presented to the ED which is why prophylactic antibiotics were given for a three day course of azithromycin 500 mg. Her Probnp test was elevated 272,Echo was performed which ruled out CHF. In view of acute respiratory distress PE was ruled out with a negative D-dimer During her stay patient responded well to therapy respiratory symptoms improved significantly and she was weaned off oxygen and was maintaining oxygen sat on roomair. She is medically stable for discharge Physical Examination on Discharge General: awake, alert oriented to place, time, and person HEENT: No pallor present, no icterus, moist mucous membranes Neck: No masses and tenderness Resp: Unlabored. Lungs clear to auscultation bilaterally. Chest: Normal expansion. Cardiovascular: Regular Rate and rhythm, normal S1 and S2 without murmur, rub or gallop Abdomen: Soft and non tender in epigastrium, no organomegaly, no guarding and rigidity, bowel sounds present Neuro: No focal weakness in the upper and lower limb muscles, power of the m uscles 5/5 bilateral upper and lower extremities, normal reflexes bilaterally. Cranial nerves intact Extremities: No cyanosis,clubbing or edema Skin: Warm and Dry. No lesions Psych: Normal affect Labs on Discharge Wbc: 4.2 Hgb: 14.6 Hct: 43.1 BUN 13 Creatinine: 0.65 Sodium: 141 Potassium: 4.1 Imaging Chest X-Ray: Suggestive of COPD(Emphysema) Echo: Small LV size with normal wall thickness. Overall systolic function is normal. Overall LVEF is 65%. Discharge Instructions Follow up with your PCP within 2 weeks Recommended to Get pulmonary function tests done. Avoid alcohol Monitor your oxygen saturation Take Azithromycin 500 PO daily for 1 day. if you have any shortness of breath call 911 or go to nearest ER. Discharge summary reviewed and edited by me. Patient came in with acute respiratory distress and wheeze with the desaturations on exertion requiring 1-2 L of oxygen which is not her usual ba seline. Patient was using her rescue inhalers at home but did not relieve the shortness of breaths. Patient was also complaining of orthopnea and PND which required evaluation for any possible heart failure which was negative with no echo findings or pro BNP. In view of acute worsening of shortness of breaths, PE was ruled out with a negative D-dimer. Patient was adequately treated for asthma exacerbation and is discharged home with the adequate medications as above Randal Workman MD Internal Medicine, PGY 2 *Problems/Diagnosis: (1) Acute respiratory failure with hypoxia Status: Resolved (2) Asthma exacerbation Status: Resolved Total Time Spent on D/C: > 30 Minutes Date of Service: Jan 29, 2025 Billing Provider: TANG DE LA GARZA MD, SANJAY, RES Jan 29, 2025 14:43 RANDAL WORKMAN, RES Jan 29, 2025 17:44
== END 2025-01-29 13:35 | disposition home or self-care (01) | DRG 189 ==
LOC: ER 09:58 → ED HOLD 13:16 → EDBEDREQ 14:14 → ORTHO 4S 14:38
PROVIDERS: ADMIT Family Medicine; ATTEND Family Medicine
DX: J96.01 Acute respiratory failure with hypoxia (principal); J45.901 Unspecified asthma with (acute) exacerbation; D72.19 Other eosinophilia; E03.9 Hypothyroidism, unspecified; Z20.822 Contact with and (suspected) exposure to COVID-19; J43.9 Emphysema, unspecified; Z88.1 Allergy status to other antibiotic agents
CPT/HCPCS: 36415; 71046; 80053; 80061; 80305; 81003; 82948; 83036; 83735; 83880; 84100; 84443; 85025; 85379; 85610; 85730; 87081; 87811; 93306; 94640; 94760; 96365; 96372; 96375; 99285; A6258; G0378; J1650; J2919; J3411; J3490

== ENCOUNTER 2025-04-26 06:42 | Inpatient (IN) | payer MEDICARE, OTHER ==
[2025-04-26] VITALS (23 sets, daily range): BP systolic 107–135; BP diastolic 62–71; PULSE 92–119; RESP 14–28; TEMP 97.5–97.9; O2SAT 88–100
[~2025-04-26] VITALS: Ht 162.6 cm; Wt 60.0 kg
[~2025-04-26 06:42] MED LIST changes: +ASPI-1071 PO; +ATOR20TA66 PO; +FOLI1TAB27 PO; +LEVO50TA PO; +METO-395 PO; +MULT9LIQ7 PO; +TIOT18CA3 INH; +thiamine tablet PO
[2025-04-26 07:05] LABS: ABG BASE EXCESS -5.9 mmol/L (-2.0-3.0); ABG HCO3 25.7 mmol/L (21.0-28.0); ABG OXYGEN SATURATION 99.4 % (94.0-98.0); ABG PCO2 (T) 76.1 mmHg (32.0-45.0); ABG PH (T) 7.135 (7.350-7.450); ABG PO2 (T) 310.2 mmHg (83.0-108.0); ALLEN'S TEST POSITIVE; FCOHb 0.3 % (0.5-1.5); FHHb 0.6 % (0.0-5.0); FIO2 100.0 mmHg/%; FMetHb 0.5 % (0.0-1.5); FO2Hb 98.6 % (94.0-98.0); MODE MASK - CPAP; PATIENT TEMPERATURE 35.2; TOTAL HEMOGLOBIN 14.9 G/dl (12.0-16.0)
[2025-04-26] MEDS: normal saline 1000ml 1,000 ML IV ONE (07:09)
[2025-04-26] MEDS: albuterol 2.5 MG/3 ML nebule NEB ONE ×2 (07:16→07:54)
--- NOTE | 2025-04-26 07:18 | Physician Documentation ---
History of Present Illness ~ Chief Complaint: Respiratory Distress Stated Complaint: SOB M ALS Time Seen by MD: 06:48 OK to notify your PCP?: Yes Primary Medical Doctor: Ariela Patel Source: patient, RN/MD, EMS, RN notes reviewed, EMS notes reviewed, old records Exam Limitations: clinical condition HPI Patient present in respiratory distress with single word sentences. History mostly obtained by EMS and past medical records. Patient was admitted on 02/1207/12/2014 for respiratory distress, non ST-elevation AL. She had elevated troponins. The patient was having difficulty breathing last night. Patient was using neb treatments. Trigger is unknown. She is on prednisone 20 mg daily. The patient was diagnosed with respiratory failure and non ST-elevation AL with follow up with Cardiology. Patient denies any chest pain she presents with retraction single word sentences. History is limited. EMS found her to have oxygenation as 60-70%. 10 L non-rebreather was placed started on BiPAP. In the ER patient was given steroids BiPAP nebulized treatments as well as aspirin for possible cardiac etiologies patient has no history of intubations. Review of the medical record also shows that her respiratory problem seemed to have been recent. She is a nonsmoker has no history of COPD or asthma 02/14/2025 patient had a cardiac catheterization that showed left main normal lad, diagonal with minimal disease circ marginal with minimal disease RCA with minimal disease Day of Onset: Apr 26, 2025 Medication Reconciliation Allergies: Coded Allergies: clindamycin (Verified Allergy, Unknown, 04/26/25) Scheduled Aspirin (Ecotrin*), 1 TAB PO DAILY Atorvastatin Calcium (Atorvastatin Calcium), 80 MG PO DAILY Budesonide/Formoterol Fumarate (Symbicort 80-4.5 Mcg Inhaler), 2 PUFFS INH Q12H Folic Acid* (Folic Acid*), 1 MG PO DAILY Levothyroxine Sodium (Synthroid), 1 TAB PO DAILY, (Reported) Metoprolol Succinate (Metoprolol Succinate), 25 MG PO DAILY Multivits W-Min/Ferrous Gluc (Centrum Multivit-Mineral Liq), 15 ML PO DAILY Tiotropium [place] (Spiriva), 1 CAP INH DAILY [thiamine tablet], 100 MG PO DAILY Scheduled PRN Albuterol Sulfate (Ventolin Hfa), 2 PUFFS INH Q4HPRN PRN for wheezing Past Medical History Past Medical History: Myocardial Infarction, Asthma, COPD, Emphysema Past Surgical History: tonsillectomy Patient History: Patient reports no known family medical history. Smoking Status: Former smoker Alcohol Use: Sober Review of Systems ROS Unable to evaluate respiratory distress Physical Exam Vital Signs: RN Vital Signs have been reviewed: Yes, Temperature: 97.8, Source: Oral, Heart Rate: 111, Respiratory Rate: 16, BP: 158/93, Pulse Oximetry: 96, Weight: 60.000 Oxygen Flow Rate: 11.0 Physical Exam General: The patient is well developed, well nourished, ill appearing and is in severe acute respiratory distress. Skin: [place], warm and dry with no rashes. HEENT: Head was normocephalic and atraumatic. Eyes - pupils equal, round, reactive to light and accommodation. Extraocular movements were intact. Conjunctivae were nonicteric. The mouth and oropharynx were clear with moist mucous membranes. There were no pharyngeal exudates or erythema. Neck: Supple and nontender. There was no jugular venous distention, lymphadenopathy, thyromegaly or masses. Chest: Positive accessory muscle use. Single word sentences. On BiPAP, short shallow breath sounds inspiratory and severe expiratory wheezing all lung gore prolonged expiratory phase no crackles Heart: Rate regular rapid and rhythmic. S1, S2. No murmurs. Palpation of the chest wall was normal. No rubs or thrills. Abdomen: Soft, nontender and nondistended. Positive bowel sounds. No guarding or rebound. No hepatosplenomegaly or palpable masses. Extremities: No cyanosis, clubbing or edema. The patient moves all extremities. Pulses were equal and symmetric. Neurologic: Motor sensory grossly intact Psychologic: The patient was oriented to person, place and time. The patient demonstrated appropriate judgement and insight. Progress Progress Note Discussed the case with the hospitalist team who agreed to admit the patient for further workup and care. Results/Orders Results/Orders Orders - GUANAKITO LIMA MD Abg (Arterial Blood Gas) (04/26/25 06:52) Urinalysis, Cult If Indicated (04/26/25 06:50) Chest,Single View (04/26/25 06:50) Culture Blood (04/26/25 06:50) Normal Saline 1000ml (0.9% Sodium Chlori (04/26/25 06:50) Monitor (04/26/25 06:50) Oxygen (04/26/25 06:50) Saline Lock (04/26/25 06:50) Electrocardiogram (04/26/25 06:50) Hs Troponin I W Calculations (04/26/25 08:50) Hs Troponin I W Calculations (04/26/25 09:50) Svn Treatment (04/26/25 06:53) Bipap/Cpap (04/26/25 07:26) Heliox Svn Treatment (04/26/25 ) Abg (Arterial Blood Gas) (04/26/25 08:49) Page Hospitalist (04/26/25 09:35) Fill Out Med Reconciliation (04/26/25 09:35) Azithromycin/Ns 500mg/250ml (Zithromax/N (04/26/25 09:55) Ceftriaxone/E0n-Rrelzali 1gm (Rocephin 1 (04/26/25 09:55) Completed Orders - GUANAKITO LIMA MD Cbc/Diff (04/26/25 06:50) MG (04/26/25 06:50) Pt Inr (04/26/25 06:50) PTT (04/26/25 06:50) PBNP (04/26/25 06:50) Chest,Single View (04/26/25 06:50) Aspirin 81mg Chew Tablet (Aspirin 81mg C (04/26/25 06:50) Electrocardiogram (04/26/25 06:50) BMP (04/26/25 06:50) Hs Troponin I W Calculations (04/26/25 06:50) Lacticsepsis (04/26/25 06:50) CMP (04/26/25 06:50) Methylprednisolone Sod Succ (Solumedrol (04/26/25 06:55) Albuterol 2.5mg/3ml Nebule (Proventil 2. (04/26/25 06:55) Procalcitonin (04/26/25 07:00) Magnesium Sulf-Water 2g/50ml (Magnesium (04/26/25 07:45) Terbutaline Inj. (Brethine Inj.) (04/26/25 07:42) Albuterol 2.5mg/3ml Nebule (Proventil 2. (04/26/25 07:45) Morphine 2mg/Ml Inj. (Morphine Inj.) (04/26/25 08:05) Medications Received in ER Medications (Trade) Dose Ordered Sig/Tim Route PRN Reason Start Time Stop Time Status Last Admin Dose Admin (aspirin 81MG chew tablet) 324 mg ONCE ONCE PO 04/26/25 06:50 04/26/25 06:53 DC 04/26/25 07:09 324 MG Sodium Chloride 1,000 ml @ 100 mls/hr Q10H ONCE IV 04/26/25 06:50 04/26/25 16:49 04/26/25 07:09 100 MLS/HR (SoluMEDROL 125mg inj) 125 mg ONCE ONCE IV 04/26/25 06:55 04/26/25 06:57 DC 04/26/25 07:20 125 MG (Proventil 2.5 MG/3ML nebule) 5 mg ONCE ONCE NEB 04/26/25 06:55 04/26/25 06:57 DC 04/26/25 07:16 5 MG Magnesium Sulfate 50 ml @ 25 mls/hr ONCE ONCE IV 04/26/25 07:45 04/26/25 09:44 DC 04/26/25 07:56 25 MLS/HR (Brethine inj.) 0.25 mg ONCE STAT SQ 04/26/25 07:42 04/26/25 07:44 DC 04/26/25 07:55 0.25 MG (Proventil 2.5 MG/3ML nebule) 2.5 mg ONCE ONCE NEB 04/26/25 07:45 04/26/25 07:48 DC 04/26/25 07:54 2.5 MG (morphine inj.) 2 mg ONCE ONCE IV 04/26/25 08:05 04/26/25 08:06 DC 04/26/25 08:13 2 MG Vital Signs 04/26/25 04/26/25 04/26/25 04/26/25 06:44 07:04 07:10 07:18 Temp 98.7 97.8 Pulse 111 119 Resp 24 16 27 28 B/P (MAP) 166/88 158/93 (114) Pulse Ox 100 96 100 O2 Delivery BiPAP+ O2 Flow Rate 11.0 11.0 FiO2 40 04/26/25 04/26/25 04/26/25 04/26/25 07:23 07:30 07:55 08:00 Temp 97.8 Pulse 108 107 111 121 Resp 27 26 28 30 26 B/P (MAP) 139/69 (92) Pulse Ox 99 99 96 97 O2 Delivery BiPAP+ BiPAP+ O2 Flow Rate 15.0 FiO2 40 30 30 30 04/26/25 04/26/25 04/26/25 04/26/25 08:04 08:06 08:13 08:29 Temp 97.8 Pulse 114 116 Resp 26 30 30 B/P (MAP) 139/69 (92) Pulse Ox 99 98 O2 Delivery BiPAP+ O2 Flow Rate 15.0 FiO2 30 30 30 Laboratory Tests Test 04/26/25 06:57 04/26/25 07:01 04/26/25 07:34 04/26/25 08:58 White Blood Count 7.0 Red Blood Count 4.55 Hemoglobin 13.9 Hematocrit 41.6 Mean Corpuscular Volume 91.4 Mean Corpuscular Hemoglobin 30.5 Mean Corpuscular Hemoglobin Concent 33.4 Red Cell Distribution Width 14.6 H Platelet Count 236 Mean Platelet Volume 7.6 Neutrophils (%) (Auto) 57.3 Lymphocytes (%) (Auto) 30.4 Monocytes (%) (Auto) 5.7 Eosinophils (%) (Auto) 6.1 H Basophils (%) (Auto) 0.5 Neutrophils # (Auto) 4.0 Lymphocytes # (Auto) 2.1 Monocytes # (Auto) 0.4 Eosinophils # (Auto) 0.4 Basophils # (Auto) 0.0 CBC Comment Prothrombin Time 10.9 INR International Normalized Ratio 1.1 Activated Partial Thromboplast Time 25 Coagulation Comments Sodium Level 143 Potassium Level 3.9 Chloride Level 108 H Carbon Dioxide Level 28.0 Anion Gap 7 L Blood Urea Nitrogen 12 Creatinine 0.65 Estimated GFR/1.73 m2 90 BUN/Creatinine Ratio 18.5 Glucose Level 142 H Lactic Acid Level 0.3 L Calcium Level 8.0 L Magnesium Level 2.0 Total Bilirubin 0.5 Aspartate Amino Transf (AST/SGOT) 19 Alanine Aminotransferase (ALT/SGPT) 21 Alkaline Phosphatase 74 Troponin I High Sensitivity 6 Pro-B-Type Natriuretic Peptide 105 Total Protein 6.9 Albumin 3.9 Globulin 3.0 Albumin/Globulin Ratio 1.3 Chemistry Comments Blood Gas Specimen Type Arterial Arterial Blood Gas Puncture Site Rr Rr O2 Saturation 99.4 H 96.7 Arterial Blood pH (Temp corrected) 7.135 *L 7.297 L Arterial Blood pCO2 (Temp correct) 76.1 *H 48.0 H Arterial Blood pO2 (Temp corrected) 310.2 *H 94.2 Arterial Blood PO2/FiO2 Ratio 3.19 3.22 Arterial Blood HCO3 25.7 23.0 Arterial Blood Base Excess -5.9 L -3.9 L Arterial Blood Oxyhemoglobin 98.6 H 96.5 Arterial Blood Carboxyhemoglobin 0.3 L 0.1 L Arterial Blood Methemoglobin 0.5 0.1 Arterial Blood Deoxyhemoglobin 0.6 3.3 Celso Test Positive Positive Blood Gas Hemoglobin 14.9 14.7 Blood Gas Temperature 35.2 36.6 Blood Gas Modality Mask - cpap Mask - bipap FiO2 100.0 30.0 Blood Gas Critical Value Called To dr cindi nieto Procalcitonin < 0.05 Blood Gas Set Respiration Rate 12 Test 04/26/25 09:26 Microbiology Date/Time Source Procedure Growth Status 04/26/25 07:06 Blood Iv Start Blood Culture - Preliminary NEGATIVE (LESS THAN 24 HOURS) Resulted Re-Evaluation Re-evaluation : Bronchodilator Tx Response: mild relief Re-Evaluation: Improved Progress This patient is critically ill presents with severe respiratory distress single word sentences traction, patient had retractions as well pretty significant. Able to nod. Appears fatigued and weak. Patient was on a non-rebreather placed on BiPAP. ABG was obtained that showed respiratory failure with hypercarbia and hypoxia. Patient received continuous neb treatments Solu-Medrol antibiotics, antibiotics, terbutaline, magnesium bolus, BiPAP, and Heliox treatments. Patient was observed multiple times unclear whether the patient would require intubation. Subsequent ABG showed improvement of the hypercarbia and hypoxia. She is now able to answer some questions. Patient was removed from BiPAP. Patient appears to have turned the corner she was auscultated multiple times and showed improved progression of her respiratory status. Laboratory work shows normal CBC no leukocytosis on steroids so that is reassuring against infection but nevertheless received antibiotics coagulation within normal limits chemistries within normal limits including a normal troponin. Patient had positive troponins during her last admission and a negative cardiac catheterization. Hospitalist was consulted who kindly agreed to admit the patient for further workup and care. EKG/XRAY/CT/US/VASC/MRI EKG : Intepreting Monitor?: Yes Additional Comment [facility] Test Date: 2025-04-26 Test Time: 06:49:04 Pat Name: JASKARAN TROY Department: EMERGENCY ROOM Room: Gender: F Director Surgical: TALON : 1955 Requested By: GUANAKITO LIMA Order Number: [id number] Reading MD: Dr. Guanakito Lima Measurements Intervals [place] Rate: 114 P: 85 NV: 128 QRS: 62 QRSD: 171 T: 68 QT: 397 QTc: 547 Interpretive Statements Sinus tachycardia Atrial premature complex Consider right atrial enlargement Nonspecific intraventricular conduction delay Probable anteroseptal infarct, old Artifact in lead(s) I,II,III,aVR,aVL,aVF,V1,V2,V4,V5 and baseline wander in lead(s) II,III,aVR,aVF,V4 Electronically Signed On 04-26-2025 9:40:[address] Guanakito Lima Please click the below link to view image of tracing. Chest X-Ray : Additional Comments CHEST RADIOGRAPH Indication: CHEST PAIN Technique: Single frontal view of the chest was obtained COMPARISON: DI CHEST,SINGLE VIEW on DOS: 02/12/25, DI CHEST,TWO VIEWS on DOS: 01/27/25, DI CHEST,SINGLE VIEW on DOS: 12/22/24 FINDINGS: Lines and Tubes: None Lungs: Increased interstitial prominence. This may represent pulmonary vascular congestion and/or viral pneumonia. Pleura: No effusion. No pneumothorax. Cardiomediastinal contours: Unremarkable Bones: Unremarkable IMPRESSION: Increased interstitial prominence. This may represent pulmonary vascular congestion and/or viral pneumonia. Electronically Signed by:DANDRE RODRIGUEZ MD Date & Time: 04/26/25727 Dictated by: DANDRE RODRIGUEZ MD Dictation date and time: 04/26/25727 Heart Score: Heart Score Response (Comments) Value History Slightly Suspicious 0 EKG Repolarization Disturb 1 Age >65 2 Risk Factors >3 or Hx ASHD 2 Total 5 Medical Decision Making Additional information obtaine: old records Findings AL versus pneumonia Heart Score: 5 Differential Dx:Considerations: Include: anxiety, asthma, bronchitis, cardiogenic shock, CHF, COPD, hyperventilation, hyponatremia, myocardial infarction, panic attack, pneumonia, pneumonitis, pneumothorax, pulmonary embolism, respiratory distress, respiratory failure, sinusitis, upper resp. infection, other Departure Disposition: ADMITTED INPATIENT Admission Level of Care: PCU with Tele Impression: Primary Impression: Acute respiratory failure with hypoxia Additional Impressions: Hypercarbia EKG abnormalities Prolonged QTC Condition: Guarded Referrals: NO PRIMARY CARE PROVIDER (PCP) Education Educated: Patient Educated regarding: diagnosis, prognosis, need for follow up, other Critical Care Note Total Time (mins): 45 Critical Care Note The very real possibility of a deterioration of this patient's condition required the highest level of my preparedness for sudden, emergent intervention. I provided critical care services, which included medication orders, frequent reevaluations of the patient's condition and response to treatment, ordering and reviewing test results, and discussing the case with various consultants. Excludes time spent performing separately billable procedures. The critical care time associated with the care of the patient was. 45 minutes possibility of intubating the patient frequent re-evaluations managing the patient for respiratory arrest and failure Signature Scribe Signature: No scribed Attestation: The note accurately reflects work and decisions made by me.Guanakito Lima MD 04/26/25 09:57 GUANAKITO LMIA MD Apr 26, 2025 07:18
[2025-04-26 07:24] LABS: MEAN PLATELET VOLUME 7.6 FL (7.4-10.4); RED CELL DISTRIBUTION WIDTH 14.6 % (11.5-14.5)
--- NOTE | 2025-04-26 07:30 | RADIOLOGY REPORT ---
CHEST RADIOGRAPH Indication: CHEST PAIN Technique: Single frontal view of the chest was obtained COMPARISON: DI CHEST,SINGLE VIEW on DOS: 02/12/25, DI CHEST,TWO VIEWS on DOS: 01/27/25, DI CHEST,SINGLE VIEW on DOS: 12/22/24 FINDINGS: Lines and Tubes: None Lungs: Increased interstitial prominence. This may represent pulmonary vascular congestion and/or viral pneumonia. Pleura: No effusion. No pneumothorax. Cardiomediastinal contours: Unremarkable Bones: Unremarkable IMPRESSION: Increased interstitial prominence. This may represent pulmonary vascular congestion and/or viral pneumonia.
[2025-04-26 07:36] LABS: APTT 25 SECONDS (22-32); INR 1.1 INR
[2025-04-26 07:39] LABS: CREATININE 0.65 MG/DL (0.40-0.90); TOTAL CARBON DIOXIDE 28.0 MMOL/L (24-32); eCRCL 70 ML/MIN; eGFR 90 ML/MIN
[2025-04-26 07:48] LABS: PRO BRAIN NATRIURETIC PEPTIDE 105 PG/ML (0-125)
[2025-04-26] MEDS: magnesium sulf-water 2g/50mL 50 ML IV ONE (07:56)
--- NOTE | 2025-04-26 08:11 | ELECTROCARDIOGRAPH REPORT ---
[facility] Test Date: 2025-04-26 Test Time: 06:49:04 Pat Name: JASKARAN TROY Department: EMERGENCY ROOM Patient ID: [id number] Room: Gender: F [employer] [place]: T[place] : 1955 Requested By: SARAH CEDENO Order Number: [id number] Reading MD: Dr. Sarah Cedeno Measurements Intervals [place] Rate: 114 P: 85 [place]: 128 QRS: 62 QRSD: 171 T: 68 QT: 397 QTc: 547 Interpretive Statements Sinus tachycardia Atrial premature complex Consider right atrial enlargement Nonspecific intraventricular conduction delay Probable anteroseptal infarct, old Artifact in lead(s) I,II,III,aVR,aVL,aVF,V1,V2,V4,V5 and baseline wander in lead(s) II,III,aVR,aVF,V4 Electronically Signed On 04-26-2025 9:40:[address] Sarah Cedeno Please click the below link to view image of tracing.
[2025-04-26 09:02] LABS: ABG BASE EXCESS -3.9 mmol/L (-2.0-3.0); ABG HCO3 23.0 mmol/L (21.0-28.0); ABG OXYGEN SATURATION 96.7 % (94.0-98.0); ABG PCO2 (T) 48.0 mmHg (32.0-45.0); ABG PH (T) 7.297 (7.350-7.450); ABG PO2 (T) 94.2 mmHg (83.0-108.0); ALLEN'S TEST POSITIVE; FCOHb 0.1 % (0.5-1.5); FHHb 3.3 % (0.0-5.0); FIO2 30.0 mmHg/%; FMetHb 0.1 % (0.0-1.5); FO2Hb 96.5 % (94.0-98.0); MODE MASK - BIPAP; PATIENT TEMPERATURE 36.6; RESPIRATORY RATE 12 b/min; TOTAL HEMOGLOBIN 14.7 G/dl (12.0-16.0)
[2025-04-26] MEDS ORDERED: bisacodyl 10mg suppository rectal RC PRN (10:05)
[2025-04-26] MEDS ORDERED: HYDROcodone/acetaminophen 10/325mg tab PO PRN (10:05)
[2025-04-26] MEDS ORDERED: potassium Cl 20 mEq SR tablet PO PRN ×2 (10:05)
[2025-04-26] MEDS ORDERED: magnesium sulf-water 4G/100mL 100 ML IV PRN (10:05)
[2025-04-26] MEDS ORDERED: mag hydrox/Alum hydrox/simeth 30ml oral suspension PO PRN (10:05)
[2025-04-26] MEDS ORDERED: albuterol 2.5 MG/3 ML nebule NEB PRN (10:05)
[2025-04-26] MEDS ORDERED: magnesium sulf-water 2g/50mL 50 ML IV PRN (10:05)
[2025-04-26] MEDS ORDERED: potassium Cl 40MEQ/1/2NS 520ml 520 ML IV PRN (10:05)
[2025-04-26] MEDS: CefTRIAXone/D5W-Rocephin 1gm 50 ML IV ONE (11:03)
[2025-04-26] MEDS: azithromycin/NS 500mg/250ml 250 ML IV ONE (11:03)
[2025-04-26] MEDS: ondansetron/PF 4mg/2ml inj IV PRN (11:17)
[2025-04-26] MEDS: ipratropium/albuterol 3ml nebule NEB SCH (11:23)
[2025-04-26] MEDS ORDERED: BUDE10.2 INH (12:22)
[2025-04-26] MEDS: methylPREDNISolone sod succ/PF 40mg inj. IV SCH (16:12)
--- NOTE | 2025-04-26 17:43 | HISTORY AND PHYSICAL ---
History & Physical Providers to CC ~ History of Present Illness Reason for Admit\Complaint: Asthma exacerbation Acute hypercapnic hypoxic respiratory failure History of Present Illness This is a 70-year-old female who has a lifelong nonsmoker presents to ED with a one-week history of intermittent worsening shortness of breath - the patient is able to sleep okay until yesterday evening the patient had developed a productive cough yesterday and develop shivers and fever. The patient is not able to sleep at all last evening and called EMS this morning that has discovered that the patient has a oxygen saturation of 60-70% on room air the patient is placed on a non-rebreather mask initially The patient has a normal white blood cell count- an ABG was obtained which demonstrated a pH of 7.135 and a pCO2 of 76.1- the patient received 125 mg IV Solu-Medrol and also received IV terbutaline her respiratory status has improved significantly per ED physician the patient is currently on BiPAP Allergies: Coded Allergies: clindamycin (Verified Allergy, Unknown, 04/26/25) Home Medications Home Medications Active Ecotrin* (Aspirin) 81 Mg Tablet.dr 1 Tab PO DAILY Ventolin Hfa (Albuterol Sulfate) 90 Mcg Hfa.aer.ad 2 Puffs INH Q4HPRN PRN 30 Days Reported Symbicort 160-4.5 Mcg Inhaler (Budesonide/Formoterol Fumarate) 160 Mcg-4.5 Mcg/Actuation Hfa.aer.ad 2 Puffs INH Q12H 30 Days Synthroid (Levothyroxine Sodium) 50 Mcg Tablet 1 Tab PO DAILY Past Medical History Past Medical History Asthma Hypothyroidism Past Surgical History Surgical History Comment Tonsillectomy Family History Family History: FH: hypothyroidism MOTHER (Hypothyroidism), , Cause: Unknown cause of injury Past Social History Social History Comment Lifelong nonsmoker, occasionally drinks a small glass of wine and measures one shot of whiskey a day, denies any illicit drug use. Full code status ROS ROS Except for positives in the HPI the rest of the 14 point review systems is negative Exam Vitals: Vital Signs Date Time Temp Pulse Resp B/P (MAP) Pulse Ox O2 Delivery O2 Flow Rate FiO2 04/26/25 16:46 20 97 Bi-pap/CPAP 15.0 30 04/26/25 15:33 102 04/26/25 15:00 97.7 107/68 (81) General: Gen. minimal respiratory distress alert and oriented 4 Lungs coarse breath sounds in all listening gore Heart normal sinus rhythm no murmurs rubs or clicks noted Abdomen soft nontender bowel sounds are normoactive Lower extremities no clubbing cyanosis, nor edema appreciated bilaterally Diagnostic Data Last Recorded Lab Results: 04/26/25 0657 04/26/25 0657 Diagnostic Data: Laboratory Tests Test 04/26/25 06:57 Prothrombin Time 10.9 SECONDS (9.0-12.0) INR International Normalized Ratio 1.1 INR Activated Partial Thromboplast Time 25 SECONDS (22-32) Coagulation Comments Advance Care Planning Advanced Care plannin - 30 Minutes Problems: (1) Acute respiratory failure with hypoxia Status: Resolved Additional Plan # acute hypoxic hypercapnic respiratory failure secondary to acute exacerbation of chronic asthma IV Solu-Medrol Scheduled DuoNeb and PRN albuterol nebs B.i.d. scheduled budesonide neb PEP with oscillitation IS IV Rocephin # respiratory acidosis Nearly resolved with BiPAP continue BiPAP # hypothyroidism Awaiting med reconciliation # DVT prophylaxis SCDs SQ Lovenox I spent a total of 17 minutes on reviewing various resuscitative measures/ ACP with the patient at the time of admission. The patient has decided on full code status Date of Service: Apr 26, 2025 Billing Provider: MILES CARVALHO DO Common Visit Codes: [id number] INP/OBS CARE (HIGH) Secondary Visit Codes: [id number] CARE PLAN 30 MINUTES MILES CARVALHO DO Apr 26, 2025 17:43
[2025-04-26] MEDS: enoxaparin 40mg/0.4ml syringe SQ SCH (19:14)
[2025-04-26] MEDS: docusate sod 100mg capsule PO SCH (19:15)
[2025-04-26] MEDS: HYDROcodone/acetaminophen 5mg/325mg tablet PO PRN (19:16)
[2025-04-26] MEDS: K and/or MAG REPLACEMENT MC SCH (19:18)
[2025-04-26] MEDS: budesonide 0.5mg/2ml UD nebule IH SCH (19:37)
[2025-04-27] VITALS (18 sets, daily range): BP systolic 110–131; BP diastolic 64–71; PULSE 87–118; RESP 16–24; TEMP 97.1–98.6; O2SAT 92–99
[2025-04-27 06:25] LABS: MEAN PLATELET VOLUME 7.8 FL (7.4-10.4); RED CELL DISTRIBUTION WIDTH 14.5 % (11.5-14.5)
[2025-04-27 06:34] LABS: CREATININE 0.53 MG/DL (0.40-0.90); TOTAL CARBON DIOXIDE 29.0 MMOL/L (24-32); eCRCL 85 ML/MIN; eGFR > 90 ML/MIN
[2025-04-27] MEDS: CefTRIAXone/D5W-Rocephin 1gm 50 ML IV SCH (07:20)
--- NOTE | 2025-04-27 19:11 | PROGRESS NOTE ---
Daily Progress Note Providers to CC ~ Antibiotic Timeout Antibiotic Ordered?: Yes Subjective The patient has shortness breath has significantly improved from that of ED presentation. The patient is still requiring oxygen however and does not have oxygen at home. The patient is requesting a nebulizer for home. The patient has no acute complaints Objective Vital Signs Date Time Temp Pulse Resp B/P (MAP) Pulse Ox O2 Delivery O2 Flow Rate FiO2 04/27/25 18:58 107 18 97 Nasal Cannula* 3 32 04/27/25 15:00 97.8 116/67 (83) Result Diagram: 04/27/25 0557 04/27/25556 Gen. No acute distress alert and oriented 4 Lungs clear to ascultation bilaterally, no wheezes rales or rhonchi appreciated Heart normal sinus rhythm no murmurs rubs or clicks noted Abdomen soft nontender bowel sounds are normoactive Lower extremities no clubbing cyanosis, nor edema appreciated bilaterally Coagulation Studies Laboratory Tests Test 04/26/25 06:57 Prothrombin Time 10.9 SECONDS (9.0-12.0) INR International Normalized Ratio 1.1 INR Activated Partial Thromboplast Time 25 SECONDS (22-32) Coagulation Comments Problem\Assessment\Plan Problems/Diagnosis: (1) Acute respiratory failure with hypoxia # acute hypoxic hypercapnic respiratory failure secondary to acute exacerbation of chronic asthma IV Solu-Medrol Scheduled DuoNeb and PRN albuterol nebs B.i.d. scheduled budesonide neb PEP with oscillitation IS IV Rocephin 04/27 significantly improved- the patient did request a home nebulizer # respiratory acidosis Nearly resolved with BiPAP continue BiPAP # hypothyroidism Continue levothyroxine # DVT prophylaxis SCDs SQ Lovenox Disposition: Anticipate discharge in 1-2 days Date of Service: Apr 27, 2025 Billing Provider: MILES CARVALHO DO Common Visit Codes: [id number] INP/OBS CARE(HIGH) MILES CARVALHO DO Apr 27, 2025 19:11
[2025-04-28] VITALS (8 sets, daily range): BP systolic 115–132; BP diastolic 70–80; PULSE 70–110; RESP 15–16; TEMP 97.4–97.8; O2SAT 96–98
[2025-04-28 06:28] LABS: MEAN PLATELET VOLUME 7.9 FL (7.4-10.4); RED CELL DISTRIBUTION WIDTH 14.4 % (11.5-14.5)
[2025-04-28 06:32] LABS: CREATININE 0.50 MG/DL (0.40-0.90); TOTAL CARBON DIOXIDE 31.4 MMOL/L (24-32); eCRCL 90 ML/MIN; eGFR > 90 ML/MIN
[2025-04-28] MEDS: levoTHYROXINE 25mcg tablet PO SCH (07:06)
[2025-04-28] MEDS: aspirin 81mg, enteric-coated 1 TAB TABLET.DR PO SCH (07:06)
[2025-04-28] MEDS ORDERED: ALBU2.5V7 NEB (11:18)
[2025-04-28] MEDS ORDERED: PRED20TA PO (11:18)
[2025-04-28] MEDS ORDERED: BUDE0.5A3 IH (11:18)
--- NOTE | 2025-04-28 11:26 | DISCHARGE SUMMARY ---
Discharge Summary Providers to CC ~ Discharge Summary Admission Diagnosis: ac hypercapnic resp failure Hospital Course DATE OF ADMISSION: 04/26/2025 DATE OF DISCHARGE: 04/28/2025 Discharge Diagnosis\Comment: Acute hypoxic hypercapnic respiratory failure secondary to acute exacerbation of chronic asthma with respiratory acidosis, hypothyroidism Operations\Procedures: None Consultants: None Complications: None Condition on DC: Stable New Medications: Prednisone* (Prednisone*) 20 Mg Tablet 1 TAB PO DAILY for 7 Days, #7 TAB Albuterol Sulfate (Albuterol Sulfate) 2.5 Mg/3 Ml Vial.neb 2.5 MG NEB Q4H PRN for SOB or wheezing, #1 BOXS Budesonide (Budesonide) 0.5 Mg/2 Ml Ampul.neb 0.5 MG IH BID, #120 ML Continued Medications: Albuterol Sulfate (Ventolin Hfa) 90 Mcg Hfa.aer.ad 2 PUFFS INH Q4HPRN PRN for wheezing for 30 Days, #18 GM 0 Refills Aspirin (Ecotrin*) 81 Mg Tablet.dr 1 TAB PO DAILY, #30 TAB.SR Budesonide/Formoterol Fumarate (Symbicort 160-4.5 Mcg Inhaler) 160 Mcg-4.5 Mcg/Actuation Hfa.aer.ad 2 PUFFS INH Q12H for 30 Days, #10.2 GM 0 Refills Levothyroxine Sodium (Synthroid) 50 Mcg Tablet 1 TAB PO DAILY Discharge Summary: I admitted the patient with the following HPI:This is a 70-year-old female who has a lifelong nonsmoker presents to ED with a one-week history of intermittent worsening shortness of breath - the patient is able to sleep okay until yesterday evening the patient had developed a productive cough yesterday and develop shivers and fever. The patient is not able to sleep at all last evening and called EMS this morning that has discovered that the patient has a oxygen saturation of 60-70% on room air the patient is placed on a non-rebreather mask initially The patient has a normal white blood cell count- an ABG was obtained which demonstrated a pH of 7.135 and a pCO2 of 76.1- the patient received 125 mg IV Solu-Medrol and also received IV terbutaline her respiratory status has improved significantly per ED physician the patient is currently on BiPAP. Her pCO2 on ABG improved after close to 2 hours on being on BiPAP in her pCO2 was 48 and a pH was 7.297. The patient was able to be titrated off of BiPAP on the morning of the however she was still requiring oxygen and felt that her heart was racing this improved though she did have some sinus tachycardia on the morning of the six I did work with the patient about taking slow deep breaths into her abdomen and sighing when breathing out to help to get a deeper relaxation. The patient was able to be titrated off of oxygen and oxygen saturation was in the low to mid 90s on room air the nurse evaluated the patient to see if she need required oxygen and the patient did not qualify for oxygen. A referral is sent off to real estate sales agent for follow up appointment as well as a referral to pulmonary rehab. The patient requested with a home nebulizer which will be brought to bedside and I prescribed Pulmicort and albuterol as needed neb treatments as well as a seven day course of prednisone. The patient has hypothyroidism was continued on levothyroxine Gen. No acute distress alert and oriented 4 Lungs clear to ascultation bilaterally, no wheezes rales or rhonchi appreciated Heart normal sinus rhythm no murmurs rubs or clicks noted Abdomen soft nontender bowel sounds are normoactive Lower extremities no clubbing cyanosis, nor edema appreciated bilaterally The patient felt ready to be discharged and was medically cleared to be discharged on 04/28/2025 The patient was seen and evaluated on day of discharge. Time spent on discharge 35 minutes *Problems/Diagnosis: (1) Acute respiratory failure with hypoxia Status: Resolved Total Time Spent on D/C: > 30 Minutes Date of Service: Apr 28, 2025 Billing Provider: MILES CARVALHO DO Common Visit Codes: 97148-ESF/OBS DISCH DAY >30min MILES CARVALHO DO Apr 28, 2025 11:26
[2025-05-23] MEDS ORDERED: BUDE0.5A3 IH (14:42)
[2025-05-23] MEDS ORDERED: BUDE10.2 INH (14:42)
[2025-05-23] MEDS ORDERED: PRED10TA23 PO (14:42)
[2025-05-23] MEDS ORDERED: LACT1CAP26 PO (14:42)
[2025-05-23] MEDS ORDERED: CEFD300C3 PO (14:42)
== END 2025-04-28 13:54 | disposition home or self-care (01) | DRG 193 ==
LOC: ER 06:43 → ED HOLD 10:10 → PCU 3S 13:25
PROVIDERS: ADMIT Family Medicine; ATTEND Family Medicine
PROC: 5A09457 Assistance with Respiratory Ventilation, 24-96 Consecutive Hours, Continuous Positive Airway Pressure (ICD-10-PCS; principal; 2025-04-26)
DX: J12.9 Viral pneumonia, unspecified (principal); J96.01 Acute respiratory failure with hypoxia; J96.02 Acute respiratory failure with hypercapnia; E87.29 Other acidosis; J45.901 Unspecified asthma with (acute) exacerbation; E03.9 Hypothyroidism, unspecified; J43.9 Emphysema, unspecified; Z88.1 Allergy status to other antibiotic agents; Z79.82 Long term (current) use of aspirin; Z79.899 Other long term (current) drug therapy; I25.2 Old myocardial infarction; Z87.891 Personal history of nicotine dependence
CPT/HCPCS: 36415; 36600; 71045; 80048; 80053; 82803; 83605; 83735; 83880; 84145; 84484; 85018; 85025; 85610; 85730; 87040; 87081; 93005; 94640; 94660; 94760; 96365; 99291; A4615; A7015; G0378; J0456; J0696; J1650; J2270; J2405; J2919; J3105; J7030; J7040